=== PATIENT | female | born 1945 | race Caucasian/White ===

== ENCOUNTER 2017-08-09 08:25 | Outpatient (CLI) | payer OTHER ==
[~2017-08-09 08:25] MED LIST: PRINIVIL5 MG; SYNTHROID100 MCG; ZOCOR40 MG
== END 2017-08-09 12:38 | disposition home or self-care (01) ==
LOC: TOM 08:25
DX: R41.2 Retrograde amnesia (principal)
CPT/HCPCS: 70460; Q9965

== ENCOUNTER 2017-08-09 08:29 | Outpatient (CLI) | payer OTHER | END 2017-08-09 09:00 | disposition home or self-care (01) | LOC: MAMO-SONO 08:29 | DX: Z12.31 Encounter for screening mammogram for malignant neoplasm of breast (principal); Z87.898 Personal history of other specified conditions; N62 Hypertrophy of breast ==

== ENCOUNTER 2017-08-09 08:32 | Outpatient (CLI) | payer OTHER | END 2017-08-09 13:04 | disposition home or self-care (01) | LOC: RAD 08:32 | DX: M46.47 Discitis, unspecified, lumbosacral region (principal); M12.9 Arthropathy, unspecified; M19.90 Unspecified osteoarthritis, unspecified site; J32.9 Chronic sinusitis, unspecified ==

== ENCOUNTER 2017-08-09 10:15 | Outpatient (CLI) | payer OTHER | END 2017-08-09 10:23 | disposition home or self-care (01) | LOC: NUCLEAR 10:15 | DX: M81.0 Age-related osteoporosis without current pathological fracture (principal) ==

== ENCOUNTER 2018-04-11 09:04 | Inpatient (IN) | payer OTHER ==
[~2018-04-11] VITALS: Ht 157.5 cm; Wt 68.0 kg
== END 2018-04-18 11:11 | disposition home or self-care (01) | DRG 392 ==
LOC: ER 09:04 → SURG 18:01 → MEDI 18:01 → SURG 19:16
PROC: BW21ZZZ Computerized Tomography (CT Scan) of Abdomen and Pelvis (ICD-10-PCS; principal; 2018-04-11)
PROC: B246ZZZ Ultrasonography of Right and Left Heart (ICD-10-PCS; 2018-04-12)
DX: K57.32 Diverticulitis of large intestine without perforation or abscess without bleeding (principal); E03.8 Other specified hypothyroidism; I10 Essential (primary) hypertension; H91.8X9 Other specified hearing loss, unspecified ear; F41.9 Anxiety disorder, unspecified

== ENCOUNTER 2018-07-28 06:59 | Day surgery (SDC) | payer OTHER | END 2018-07-28 12:44 | disposition home or self-care (01) | LOC: AMB-ENDOS 06:59 | DX: K57.32 Diverticulitis of large intestine without perforation or abscess without bleeding (principal); K64.1 Second degree hemorrhoids ==

== ENCOUNTER 2018-10-02 07:44 | Outpatient (CLI) | payer OTHER | END 2018-10-02 07:51 | disposition home or self-care (01) | LOC: MAMO-SONO 07:44 | DX: Z12.31 Encounter for screening mammogram for malignant neoplasm of breast (principal); Z87.898 Personal history of other specified conditions; N63.10 Unspecified lump in the right breast, unspecified quadrant; N63.20 Unspecified lump in the left breast, unspecified quadrant ==

== ENCOUNTER 2019-01-14 09:13 | Emergency (ER) | payer OTHER ==
[~2019-01-14] VITALS: Ht 152.4 cm; Wt 64.4 kg
== END 2019-01-14 14:20 | disposition home or self-care (01) ==
LOC: ER 09:13
DX: K52.89 Other specified noninfective gastroenteritis and colitis (principal)

== ENCOUNTER 2019-04-09 09:22 | Outpatient (CLI) | payer OTHER | END 2019-04-09 10:00 | disposition home or self-care (01) | LOC: SONOGRAMA 09:22 | DX: R19.09 Other intra-abdominal and pelvic swelling, mass and lump (principal) ==

== ENCOUNTER 2019-12-27 07:12 | Outpatient (CLI) | payer OTHER | END 2019-12-27 07:17 | disposition home or self-care (01) | LOC: NUCLEAR 07:12 | PROVIDERS: ATTEND Internal Medicine Cardiovascular Disease | DX: R07.89 Other chest pain (principal) | CPT/HCPCS: 78452; 93017; A9500; J0153 ==

== ENCOUNTER → 2020-03-31 | Outpatient (CLI) | payer OTHER | END | disposition home or self-care (01) | LOC: RAD 09:59 | PROVIDERS: ATTEND Internal Medicine Cardiovascular Disease | DX: I05.8 Other rheumatic mitral valve diseases (principal); J44.9 Chronic obstructive pulmonary disease, unspecified ==

== ENCOUNTER 2020-10-07 12:35 | Outpatient (CLI) | payer OTHER | END 2020-10-07 12:39 | disposition home or self-care (01) | LOC: NUCLEAR 12:35 | PROVIDERS: ATTEND Psychiatry & Neurology Clinical Neurophysiology | DX: I35.0 Nonrheumatic aortic (valve) stenosis (principal) ==

== ENCOUNTER → 2021-07-13 | Outpatient (CLI) | payer OTHER | END | disposition home or self-care (01) | LOC: MAMO-SONO 09:33 | PROVIDERS: ATTEND Internal Medicine Cardiovascular Disease | DX: M19.90 Unspecified osteoarthritis, unspecified site (principal); N63.11 Unspecified lump in the right breast, upper outer quadrant; N63.12 Unspecified lump in the right breast, upper inner quadrant ==